=== PATIENT | male | born 1955 | race Caucasian/White ===

== ENCOUNTER 2019-11-07 21:54 | Emergency (ER) | payer OTHER ==
[~2019-11-07] VITALS: Ht 167.6 cm; Wt 72.7 kg
[~2019-11-07 21:54] MED LIST: AMOX-462 PO; HUM10VIA6 SQ; METF-446 PO
[2019-11-07 23:08] VITALS: BP 114/67
== END 2019-11-08 00:31 | disposition left against medical advice (07) ==
LOC: EMS 21:54
DX: T45.91XA Poisoning by unspecified primarily systemic and hematological agent, accidental (unintentional), initial encounter (principal); Z53.21 Procedure and treatment not carried out due to patient leaving prior to being seen by health care provider; Y92.89 Other specified places as the place of occurrence of the external cause